=== PATIENT | female | born 1960 | race African-American/Black ===

== ENCOUNTER → 2018-10-28 | Outpatient (CLI) | payer OTHER ==
--- NOTE | 2018-10-28 12:15 | 2DMMODE ---
[facility] [place] [employer] [place] [address] 2 D/M-MODE ECHOCARDIOGRAM Name: NEERAJ RAO Room #: REG [facility]#: [id number] ������������� Admission: 10/28/18 ������������� Attend Phys: Physician not on s Discharge: ��� ������������� ��� Date of : 58 Date of Service: 10/28/18 1215 �� Report #: [id number] �������� ��������������������������������������������[id number] THIS REPORT FOR: //name// APPROVED REPORT Study performed: 10/28/2018 10:20:13 EXAM: Comprehensive 2D, Doppler, and color-flow Echocardiogram Patient Location: Out-Patient Status: routine BSA: 2.21 HR: 57 bpm BP: 158/92 mmHg Rhythm: Bradycardia Other Information Study Quality: Good Indications Hypertension/HDD 2D Dimensions RVDd: 35.02 mm IVSd: 10.70 (7-11mm) LVOT Diam: 20.47 (18-24mm) LVDd: 42.24 mm PWd: 11.01 (7-11mm) Ascending Ao: 32.15 (22-36mm) LVDs: 34.07 (25-40mm) Aortic Root: 24.83 mm IVC: 18.00 mm Volumes Left Atrial Volume (Systole) Single Plane 4CH: 77.49 mL Single Plane 2CH: 64.68 mL LA ESV Index: 35.00 mL/m2 Aortic Valve AoV Peak Rico.: 1.78 m/s AO Peak Gr.: 12.72 mmHg LVOT Max P.46 mmHg LVOT Max V: 1.06 m/s CAROLANN Vmax: 1.95 cm2 Mitral Valve E/A Ratio: 1.0 MV Decel. Time: 221.67 ms MV E Max Rico.: 1.06 m/s [facility] [address] [address] 2 D/M-MODE ECHOCARDIOGRAM Name: NEERAJ RAO Room #: REG [facility]#: [id number] ������������� Admission: 10/28/18 ������������� Attend Phys: Physician not on s Discharge: ��� ������������� ��� Date of : 58 Date of Service: 10/28/18 1215 �� Report #: [id number] �������� ��������������������������������������������[id number] MV A Rico.: 1.02 m/s MV PHT: 64.28 ms IVRT: 101.50 ms Pulmonary Valve PV Peak Rico.: 1.05 m/s PV Peak Gr.: 4.40 mmHg Pulmonary Vein P Vein S: 0.61 m/s P Vein A: 0.28 m/s P Vein D: 0.29 m/s P Vein A Dur.: 106.1 msec P Vein S/D Ratio: 2.10 Tricuspid Valve TR Peak Rico.: 2.62 m/s TR Peak Gr.: 27.55 mmHg PA Pressure: 38.00 mmHg Left Ventricle The left ventricle is normal size. There is normal LV segmental wall motion. There is normal left ventricular wall thickness. The left ventricular systolic function is normal. The left ventricular ejection fraction is within the normal range. LVEF is 55-60%. The left ventricular diastolic function is normal. Right Ventricle The right ventricle is normal size. The right ventricular systolic function is normal. Atria Left atrium is mildly dilated. Right atrium is mildly dilated. Aortic Valve Aortic valve leaflets are mildly sclerotic No aortic regurgitation is present. There is no aortic valvular stenosis. Mitral Valve The mitral valve is normal in structure. Mild mitral regurgitation. No evidence of mitral valve stenosis. Tricuspid Valve The tricuspid valve is normal in structure. Mild tricuspid regurgitation. Estimated PAP is 35mmHg. Pulmonic Valve The pulmonary valve is normal in structure. Pulmonic valve is grossly [facility] [address] [place] [address] 2 D/M-MODE ECHOCARDIOGRAM Name: NEERAJ RAO Room #: REG [place]#: [id number] ������������� Admission: 10/28/18 ������������� Attend Phys: Physician not on s Discharge: ��� ������������� ��� Date of : 58 Date of Service: 10/28/18 1215 �� Report #: [id number] �������� ��������������������������������������������[id number] normal in structure. Trace to mild pulmonic regurgitation. Great Vessels The aortic root is normal in size. IVC is normal in size and collapses <50% with inspiration. Pericardium There is no pericardial effusion. Small right pleural effusion. <Conclusion> The left ventricular systolic function is normal. There is normal LV segmental wall motion. LVEF is 55-60%. Aortic valve leaflets are mildly sclerotic. No aortic regurgitation or stenosis The mitral valve is normal in structure. Mild mitral regurgitation. Mild tricuspid regurgitation. Estimated pulmonary artery pressure of 35mmHg. There is no pericardial effusion. ��������������������������������������������� <ELECTRONICALLY SIGNED> ���������������������������������������� By: Brent Mckenzie MD, FACC ��������������������������������������������� 10/28/18 1215 14 14 Brent Mckenzie MD, FACC /INF
== END ==
LOC: CV 10:13
DX: I08.8 Other rheumatic multiple valve diseases (principal); T78.3XXD Angioneurotic edema, subsequent encounter; I10 Essential (primary) hypertension; Z88.1 Allergy status to other antibiotic agents; X58.XXXD Exposure to other specified factors, subsequent encounter